=== PATIENT | male | born 1950 | race Caucasian/White ===

== ENCOUNTER → 2020-06-13 | Day surgery (SDC) | payer MEDICARE, OTHER ==
[~2020-06-13] MED LIST: Ketamine 200 MG/20 ML MDV ONE; Lactated Ringers 1,000 ML IV SCH; Propofol 200 MG/20 ML SDV ONE; fentaNYL 100 MCG/2 ML SDV ONE
[2020-06-13 07:53] VITALS: BP 103/56; PULSE 74
--- NOTE | 2020-06-13 08:31 | OR ---
DATE OF OPERATION: 06/13/2020 PREOPERATIVE DIAGNOSIS: HISTORY OF POLYPS. POSTOPERATIVE DIAGNOSIS: HISTORY OF POLYPS. SURGEON: Spencer Bonds MD PROCEDURE: DIAGNOSTIC COLONOSCOPY WITH SNARE POLYPECTOMY X2. ANESTHESIA: MAC. COMPLICATIONS: None. SPECIMEN: Two right-sided colon polyps. FINDINGS: 1. Full-length colonoscopy. 2. Poor bowel prep. 3. Small sessile polyp, ascending colon. 4. Large tubular adenoma, hepatic flexure. 5. Mild to moderate sigmoid diverticulosis. RECOMMENDATIONS: Followup colonoscopy in 5 years. INDICATIONS: Patient has prior history of polyps removed about 5 years ago. He is due for a routine followup scope. DESCRIPTION OF PROCEDURE: The patient was prepped and draped, placed in the left lateral decubitus position. A lubricated Olympus colonoscope was inserted and for the most part was easy to advance. The patient had significant volume of stool, most notably in the left and distal transverse colon. It was very hard to navigate through here due to the volume of stool and the fact that he had significant diverticular disease. Once we got past the splenic flexure, it was much easier to see the right colon, had better visualization, although the cecum had a lot of stool as well. We were able to visualize the ileocecal valve and appendiceal orifice. The bowel prep as stated earlier was marginal at best. Upon withdrawal, we irrigated the right colon as best we could. There was solid stool in the cecum, but grossly the cecum and ascending colon were benign until its most distal portion where the patient had a small sessile polyp, it was deep in the fold, got a snare around it twice and removed the polyp in its entirety, suctioned it into polyp trap #1. Right at the hepatic flexure, the patient had a large tubular adenoma with a small stalk that was easily snared. Unfortunately due to its size, I could not get it through the scope, we brought it out through the rectum on the end of the scope. The scope was then readvanced to the hepatic flexure. Most of the transverse colon could be seen quite easily. No abnormalities were seen. Once we got past the splenic flexure, the left colon was very difficult to visualize, irrigated as best we could, but the scope kept plugging. There is obvious diverticular disease throughout the sigmoid area, moderate in severity, but no other polyps, masses, ulceration or bleeding sites could be seen. The rectal vault had a volume of some amount of stool. Grossly, no abnormalities were visualized. I could not retroflex due to the stool. Air was suctioned as best as possible. Scope was removed without complication. MAURO/SERGIO /[id number]
== END ==
LOC: CC.SDS 06:30
PROVIDERS: ATTEND Family Medicine
DX: Z12.11 Encounter for screening for malignant neoplasm of colon (principal); D12.2 Benign neoplasm of ascending colon; D12.3 Benign neoplasm of transverse colon; K57.30 Diverticulosis of large intestine without perforation or abscess without bleeding; I10 Essential (primary) hypertension; E11.9 Type 2 diabetes mellitus without complications; E66.9 Obesity, unspecified; Z01.812 Encounter for preprocedural laboratory examination; Z20.822 Contact with and (suspected) exposure to COVID-19; Z79.84 Long term (current) use of oral hypoglycemic drugs
CPT/HCPCS: 00812; 82962; 88305; J2704; J3010; J7120

== ENCOUNTER → 2022-08-13 | Day surgery (SDC) | payer MEDICARE, OTHER ==
[~2022-08-13] MED LIST changes: -Lactated Ringers 1,000 ML IV SCH; -fentaNYL 100 MCG/2 ML SDV ONE; +fentaNYL 50 MCG/ML SDV ONE
[2022-08-13] MEDS: Lactated Ringers 1,000 ML IV SCH (07:36)
[2022-08-13 09:26] VITALS: BP 115/71; PULSE 70
== END ==
LOC: CC.SDS 07:24
PROVIDERS: ATTEND Family Medicine
DX: D12.3 Benign neoplasm of transverse colon (principal); K51.40 Inflammatory polyps of colon without complications; K57.30 Diverticulosis of large intestine without perforation or abscess without bleeding; K64.8 Other hemorrhoids; K62.89 Other specified diseases of anus and rectum; E11.9 Type 2 diabetes mellitus without complications; E78.5 Hyperlipidemia, unspecified; K21.9 Gastro-esophageal reflux disease without esophagitis; C61 Malignant neoplasm of prostate; M79.674 Pain in right toe(s); Z86.010 Personal history of colon polyps; Z79.84 Long term (current) use of oral hypoglycemic drugs; Z79.899 Other long term (current) drug therapy
CPT/HCPCS: 00811; 82947; 88305; J2704; J3010; J3490; J7120

== ENCOUNTER 2023-03-06 10:53 | Emergency (ER) | payer MEDICARE, OTHER ==
[2023-03-06 11:47] LABS: BASOPHILS ABSOLUTE AUTO 0.04 10^3/uL (0.00-0.50); BASOPHILS PERCENT AUTO 0.3 % (0-1); EOSINOPHILS ABSOLUTE AUTO 0.13 10^3/uL (0.00-1.50); EOSINOPHILS PERCENT AUTO 0.9 % (0-6); HEMATOCRIT 38.6 % (42.0-52.0); HEMOGLOBIN 12.9 g/dL (14.0-18.0); IMMATURE GRAN ABSOLUTE AUTO 0.06 10^3/uL (0.00-0.49); IMMATURE GRAN PERCENT AUTO 0.4 % (0.0-4.9); LYMPHOCYTES ABSOLUTE AUTO 0.78 10^3/uL (0.60-5.00); LYMPHOCYTES PERCENT AUTO 5.4 % (24-44); MEAN CORPUSCULAR HGB CONC 33.4 g/dL (32.0-36.0); MEAN CORPUSCULAR VOLUME 83.9 fL (83.0-97.0); MONOCYTES ABSOLUTE AUTO 1.09 10^3/uL (0.00-1.50); MONOCYTES PERCENT AUTO 7.6 % (0-10); NEUTROPHILS ABSOLUTE AUTO 12.24 x10^3/uL (1.80-8.00); NEUTROPHILS PERCENT AUTO 85.4 % (41-71); PLATELET COUNT,PLT 315 10^3/uL (150-400); WHITE BLOOD CELL COUNT,WBC 14.3 10^3/uL (4.0-11.0)
[2023-03-06] MEDS ORDERED: Sodium Chloride 0.9% 500 ML IV SCH (12:00)
[2023-03-06 12:07] LABS: ALBUMIN 3.6 g/dL (3.4-5.0); EST CRCL DRUG DOSING (CG) 58.38 mL/min
[2023-03-06 12:18] VITALS: BP 119/67; PULSE 73
[2023-03-06 12:22] LABS: BILIRUBIN TOTAL 0.8 mg/dL (0.0-1.0); C-REACTIVE PROTEIN 3.97 mg/dL (<=0.30); CALCIUM 9.4 mg/dL (8.4-10.1); CREATININE 1.2 mg/dL (0.7-1.3); MAGNESIUM 1.6 mg/dL (1.8-2.4); POTASSIUM,K 4.2 mEq/L (3.5-5.0); PROTEIN TOTAL,TP 7.5 g/dL (6.4-8.2)
== END 2023-03-06 12:40 | disposition home or self-care (01) ==
LOC: CC.ED 10:53
DX: R55 Syncope and collapse (principal); I45.10 Unspecified right bundle-branch block
CPT/HCPCS: 36415; 70450; 71045; 80053; 83735; 84484; 85025; 86140; 93010; 96360; 99284; 99284-25; J7040